=== PATIENT | female | born 1965 | race Two or more races ===

== ENCOUNTER 2024-07-26 23:26 | Emergency (ER) | payer OTHER ==
[~2024-07-26] VITALS: Ht 160 cm; Wt 87.6 kg
[2024-07-27 00:09] VITALS: BP 176/81; TEMP 98.6; O2SAT 95
== END 2024-07-27 00:38 | disposition left against medical advice (07) ==
LOC: ER 23:30
DX: M54.9 Dorsalgia, unspecified (principal); Z53.21 Procedure and treatment not carried out due to patient leaving prior to being seen by health care provider